=== PATIENT | male | born 1940 | race Caucasian/White ===

== ENCOUNTER 2019-01-02 08:38 | Day surgery (SDC) | payer MEDICARE, OTHER ==
[~2019-01-02] VITALS: Ht 177.8 cm; Wt 87.0 kg
[~2019-01-02 08:38] MED LIST: ALLO300 PO; AMLO10 PO; ATEN25 PO; Aspirin EC81 MG PO; HYDR1TAB94 PO; LOSA25 PO; LOSARTAN POTAS100 MG PO; Lovastatin20 MG PO; METF500 PO
[2019-01-02] MEDS ORDERED: FISH OIL 1,0001 EAC1 PO (09:18)
--- NOTE | 2019-01-02 16:10 | NUR ---
PT TO RECOVERY ROOM POST PROCEDURE. PT IS DROWSY, BUT ROUSES TO VERBAL STIMULI, ANSWERS QUESTIONS. PT DENIES PAIN, SOB OR NAUSEA. MONITOR SB WITH 1ST DEGREE 40'S, B/P 132/70, SPO2 93-95% RA. R GROIN SITE SOFT, NO SWELLING/HEMATOMA, TEGADERM DRSG C,D,I. L POSTERIOR TIBIA SITE SOFT, NO SWELLING/HEMATOMA, BRIEN DRSG IN PLACE C,D,I. LLE: +2 DP AND PT PULSES POST PROCEDRE.
--- NOTE | 2019-01-02 16:25 | NUR ---
PT'S HERE, UPDATED.
--- NOTE | 2019-01-02 18:10 | NUR ---
PT SITTING UP IN BED EATING DINNER, R GROIN SITE UNCHANGED WITH ACTIVITY.
--- NOTE | 2019-01-02 18:29 | NUR ---
PT TOOK DINNER WITHOUT PROBLEM. PT AMB TO BATHROOM AND IN POWELL, R GROIN AND L TIBIA SITE STABLE WITH ACTIVITY. PT UNSTEADY WITH ACTIVITY, REPORTS FEELING DIZZY, VS UNCHANGED.
--- NOTE | 2019-01-02 18:40 | NUR ---
PT AMB IN POWELL, GAIT STEADY, REPORTS MIN DIZZINESS; R GROIN SITE UNCHANGED.
--- NOTE | 2019-01-02 18:53 | NUR ---
PT DRESSED WITH ASSISTANCE FROM , R GROIN AND L TIBIA SITE UNCHANGED; IV REMOVED-CANNULA INTACT. PT AND RECEIVED DISCHARGE INSTRUCTIONS, MED LIST AND AFTER CARE INSTRUCTIONS; VERBALIZED GOOD UNDERSTANDING. PT AND LEFT FACILITY VIA W/C, CONDITION STABLE.
== END 2019-01-02 18:50 | disposition home or self-care (01) ==
LOC: MHTC 08:38
DX: E11.51 Type 2 diabetes mellitus with diabetic peripheral angiopathy without gangrene (principal); I70.213 Atherosclerosis of native arteries of extremities with intermittent claudication, bilateral legs; I70.8 Atherosclerosis of other arteries; I10 Essential (primary) hypertension; E78.5 Hyperlipidemia, unspecified; Z87.891 Personal history of nicotine dependence; Z79.899 Other long term (current) drug therapy; Z79.82 Long term (current) use of aspirin; Z79.4 Long term (current) use of insulin
CPT/HCPCS: 37227; 37228; 37232; 37236; 75625; 75716; 75774; 76937; 82947; 85347; 99152; 99153; C1724; C1725; C1760; C1769; C1874; C1884; C1887; C1894; C2623; J1200; J1644; J2060; J2250; J2405; J3010; J7030; Q9967

== ENCOUNTER 2019-02-14 06:47 | Day surgery (SDC) | payer MEDICARE, OTHER ==
[~2019-02-14] VITALS: Ht 177.8 cm; Wt 86.3 kg
[~2019-02-14 06:47] MED LIST changes: +FISH OIL 1,0001 EAC1 PO
--- NOTE | 2019-02-14 14:25 | NUR ---
discharge pt remained a&ox3 and denied any pain during recovery. left groin site remains stable-cdi no hematoma noted. pt ambulated to restroom and was able to dress self independatly. discharge paperwork gone over with pt. pt verbally stated the understanding of the discharge education and denied any questions. iv dc'd with [place] in tact. pt wheeled out by this nurse.
== END 2019-02-14 11:00 | disposition home or self-care (01) ==
LOC: MHTC 06:47
DX: E11.51 Type 2 diabetes mellitus with diabetic peripheral angiopathy without gangrene (principal); I10 Essential (primary) hypertension; E78.5 Hyperlipidemia, unspecified; M47.9 Spondylosis, unspecified; M10.9 Gout, unspecified; I44.30 Unspecified atrioventricular block; Z88.5 Allergy status to narcotic agent; Z88.8 Allergy status to other drugs, medicaments and biological substances; Z79.82 Long term (current) use of aspirin; Z79.899 Other long term (current) drug therapy; Z87.891 Personal history of nicotine dependence; Z79.84 Long term (current) use of oral hypoglycemic drugs
CPT/HCPCS: 37225; 37228; 75716; 75774; 82947; 85347; 99152; 99153; C1714; C1725; C1760; C1769; C1884; C1887; C1894; C2623; J1200; J1644; J2250; J3010; J7030; Q9967